=== PATIENT | male | born 1965 | race American Indian/Alaskan Native ===

== ENCOUNTER 2022-05-26 10:55 | Outpatient (CLI) | payer OTHER ==
--- NOTE | 2022-05-26 13:37 | Cat Scan Report ---
CT abdomen pelvis wo/w con INDICATION: R31.0 HEMATURIA. COMPARISON: None TECHNIQUE: Abdominal and pelvic CT exam performed. All CT scans at this location are performed using CT dose reduction for ALARA by means of automated exposure control. FINDINGS: CT ABDOMEN and PELVIS: Lung Bases: Dependent atelectasis. Liver: No significant abnormality. Biliary: No significant abnormality. Spleen: No significant abnormality. Pancreas: No significant abnormality. Adrenals: No significant abnormality. Kidneys: Bilateral renal cysts of differing sizes and complexities but no suspicious enhancement. The re are 2 punctate left lower pole 3 mm stones and a few punctate right renal stones as well. There ar e 2 larger right renal stones measuring up to approximately 1.2 cm in the upper and lower poles. No h ydronephrosis. No intraureteral stones. Bladder: There are a few stones seen layering dependently in the bladder, measuring up to 1.2 cm. No suspicious wall thickening identified. Lymphatics: No lymphadenopathy. Vasculature: No significant abnormality. Bowel: Diverticulosis without colonic wall thickening or pericolonic stranding. Appendix is nonvisual ized. However, no inflammatory changes in the right lower quadrant to suggest appendicitis. Pelvis: No significant abnormality. Osseous Structures: No aggressive osseous lesion. Additional Findings: None IMPRESSION: 1. Nonobstructing nephrolithiasis. 2. No acute findings. Signer Name: Robert Briones MD Signed: 05/26/2022 1:33 PM Workstation Name: [id number]
== END 2022-05-26 10:56 | disposition home or self-care (01) ==
LOC: CT 10:55
PROVIDERS: ATTEND Urology
DX: N20.0 Calculus of kidney (principal); R31.0 Gross hematuria; N28.1 Cyst of kidney, acquired; J98.11 Atelectasis; K57.30 Diverticulosis of large intestine without perforation or abscess without bleeding
CPT/HCPCS: 74178; Q9967